=== PATIENT | male | born 1945 | race Caucasian/White ===

== ENCOUNTER → 2024-02-15 14:14 | Outpatient (REF) | payer MEDICARE, OTHER, SELFPAY | LOC: RCS 14:14 | PROVIDERS: ATTENDING PHYSICIAN Physical Medicine & Rehabilitation; FAMILY PHYSICIAN Family Medicine | DX: Z01.818 Encounter for other preprocedural examination (principal) | CPT/HCPCS: 93005 ==

== ENCOUNTER 2024-04-24 16:12 | Emergency (ER) | payer MEDICARE, OTHER, SELFPAY ==
[2024-04-24 16:22] VITALS: BP 133/98
[2024-04-24 16:53] LABS: % Basophils 0.8 % (0-2); % Eosinophils 3.1 % (0-6); % Immature Granulocytes 0.3 % (0-0.5); % Lymphocytes 23.5 % (20.5-51.1); % Monocytes 10.9 % (1.7-9.3); % Neutrophils 61.4 % (42.2-75.2); Absolute Basophils 0.1 10^3/uL (0-0.2); Absolute Eosinophils 0.2 10^3/uL (0-0.7); Absolute Lymphocytes 1.7 10^3/uL (1.2-3.4); Absolute Monocytes 0.8 10^3/uL (0.1-0.6); Absolute Neutrophils 4.6 10^3/uL (1.4-6.5); Hematocrit 48.5 % (39.0-52.0); Hemoglobin 16.2 g/dL (13.0-18.0); Mean Corp Hgb Conc. 33.4 g/dL (33.0-37.0); Mean Corpuscular Hgb 32.5 pg (27.0-31.0); Mean Corpuscular Volume 97.2 fL (80.0-94.0); Mean Platelet Volume 10.9 fL (7.4-10.4); Nucleated Red Blood Cells % 0 % (-); Platelet Count 178 10^3/uL (130-400); Red Blood Cell Count 4.99 10^6/uL (4.70-6.10); Red Cell Dist. Width 12.9 % (11.5-14.5); White Blood Cell Count 7.4 10^3/uL (4.8-10.8)
[2024-04-24 17:15] LABS: Troponin I < 0.012 ng/ml
[2024-04-24 17:20] LABS: ALT (SGPT) 48 U/L (0-50); AST (SGOT) 49 U/L (17-59); Albumin 4.8 g/dl (3.5-5.0); Alkaline Phosphatase 52 U/L (38-126); Blood Urea Nitrogen 19 mg/dl (9-20); Carbon Dioxide 29 mmol/L (22-30); Chloride 101 mmol/L (98-107); Glucose 107 mg/dl (70-99); Potassium 4.7 mmol/L (3.5-5.1); Sodium 139 mmol/L (135-145); Total Bilirubin 1.2 mg/dl (0.2-1.3); Total Protein 8.1 g/dl (6.3-8.2); eGFR > 60.00
[2024-04-24 18:19] VITALS: BP 141/83
--- NOTE | 2024-04-24 18:25 | ED.GENMED ---
History of Present Illness
General
Chief Complaint: Eye Problems
Time Seen by Provider: 04/24/24 18:17
History of Present Illness
History of Present Illness:
HPI: Patient states he had an episode of double vision 3 days ago. His did not hear about this until today. He has chronic confusion according to the . There were no other symptoms. He states he had double vision at [facility] once
hospitalized overnight about 8 years ago. He currently denies any symptoms.
EXAM:
GENERAL: Well appearing in no distress
HEENT: Moist oral mucosa, there is no disconjugate gaze, visual acuity is 20/15 corrected in both eyes
CARDIOVASCULAR: No murmurs, normal heart rate, regular rhythm, No chest wall tenderness
PULMONARY: No respiratory distress, breath sounds are clear and equal
ABDOMEN: Soft with no peritoneal signs, no tenderness
NEUROLOGIC: Excellent strength all extremities, no coordination deficits, normal finger-nose testing
PSYCHIATRIC: Appropriate mental status, normal insight and judgement
EXTREMITIES: Nontender, no edema, moves all extremities equally
SKIN: No rash, no lesions
TIME OF INITIAL ENCOUNTER: 6:10 PM
NUMBER AND COMPLEXITY OF PROBLEMS ADDRESSED AT THE ENCOUNTER
� Chronic conditions affecting care: TIA in 2016, CAD, high blood pressure, hyperlipidemia
� Acute Exacerbation and/or Progression of Chronic Illness: This is an acute problem but had a similar episode 8 years ago and states he was put on aspirin at that time
� Differential Diagnosis includes: TIA, hypoglycemic episode, ophthalmic migraine, aneurysm unlikely
AMOUNT AND/OR COMPLEXITY OF DATA TO BE REVIEWED AND ANALYZED
� I performed an independent evaluation of and my interpretation is:
EKG: Sinus 69, nonspecific ST abnormality
CT: CT shows no acute abnormality
X-rays:
Laboratory Studies: Chemistries unremarkable, CBC unremarkable
Other:
� Review of other/old records: I reviewed records�the patient went to the OR for spinal stenosis last year
� Clinical information was obtained by an independent historian: I spoke to at bedside
� Prescriptions/Medications Considered but not given:
� Further testing considered but not performed:
RISK OF COMPLICATIONS AND/OR MORBIDITY OR MORTALITY OF PATIENT MANAGEMENT
� Social determinants of health affecting care: Lives at home
� Discussion with other providers:
� Escalation of care including admission/observation vs risk of discharge considered: The patient has an unremarkable CT brain and has a stroke scale of 0 with GCS of 15. His symptoms have started to resolve 3 days ago. He had
been on aspirin at the recommendation of his workup at [facility] several years ago�I suggested that he resume baby aspirin for neuro. I encouraged him to follow-up with primary, neuro, and ophthalmology.
Past History
Past History
ED Past Medical History: HTN, Hypercholesterolemia and Psychiatric
Social History
Personal:
Phy Exam
Physical Exam
Physical Exam:
See HPI
Course
Orders/Labs/Results
Orders:
Orders
04/24/24 16:25
Electrocardiogram (*1) Urgent
Reason for Study: Other
Other Reason for Exam: double vision
CT Head W/o Iv Contrast Urgent
Comment:
Reason For Exam: double vision
04/24/24 16:26
EKG- Treatment ONCE
04/24/24 16:40
Complete Blood Count/With Diff Urgent
Comprehensive Metabolic Panel Urgent
Troponin I Urgent
04/24/24 18:29
Electrocardiogram (*1) Urgent
Reason for Study: TIA/Stroke
EKG- Treatment ONCE
Abnormal Lab Results
04/24/24
16:40
MCV 97.2 H fL
(80.0-94.0)
MCH 32.5 H pg
(27.0-31.0)
MPV 10.9 H fL
(7.4-10.4)
Absolute Monos (auto) 0.8 H 10^3/uL
(0.1-0.6)
Monocytes % 10.9 H %
(1.7-9.3)
Glucose 107 H mg/dl
(70-99)
04/24/24 16:40
04/24/24 16:40
Vital Signs
Initial and Last Documented VS:
Initial Vital Signs
Temp Pulse Resp BP Pulse Ox
98.3 F 80 16 133/98 95
04/24/24 16:22 04/24/24 16:22 04/24/24 16:22 04/24/24 16:22 04/24/24 16:22
Last Documented Vital Signs
Temp Pulse Resp BP Pulse Ox
98.3 F 71 18 141/83 97
04/24/24 16:22 04/24/24 18:19 04/24/24 18:19 04/24/24 18:19 04/24/24 18:19
*Critical Care Note
Total Time (30-74mins, 75-104mins- exclusive of procedures): Not Applicable
ED Attending Note
-
Portions of this chart may have been created with voice recognition software.� Occasional wrong word or��sound alike� substitutions may have occurred due to the inherent limitations of voice recognition software.
Discharge Plan
Departure
Patient Disposition: Home (Routine Discharge)
Date of Disposition: 04/24/24
Time of Disposition: 19:37
Patient with high blood pressure during this ER visit?: Yes
Discharge Problem:
Double vision
Instructions: Double Vision (DC)
Prescriptions:
No Action
atenolol 50 MG tablet
50 mg PO DAILY
lisinopril 5 MG tablet
5 mg PO DAILY
paroxetine HCl 40 MG tablet
40 mg PO DAILY
multivitamin Tablet
1 tab PO DAILY
Hold Instructions: Resume on 11/03/22.
atorvastatin 40 mg Tablet
40 mg PO DAILY
lorazepam 0.5 mg Tablet
0.5 mg PO HS
oxycodone-acetaminophen [Percocet] 10-325 mg tablet
1 tab PO Q6H PRN (Reason: moderate-severe pain) Qty: 30 0RF
Rx Instructions:
1/2 tab moderate pain or 1 if severe
Rx Dick Romo
tizanidine 2 mg capsule
2 mg PO TID Qty: 30 0RF
Rx Instructions:
*Rx provided by Abigail Romo
Referrals:
Gino Vila MD [Active] - Next open appointment
Gino Suggs MD [Family Provider] -
Activity Restrictions/Additional Instructions:
The cause of your symptoms is unclear. The CAT scan of the brain shows no acute abnormality. There is no sign of bleeding or tumor in the brain. I have given you the contact information for a local neurologist you could try following up with but
I also recommend that you follow-up with your primary care doctor. Consider taking a baby aspirin for stroke prevention. You should also follow-up with an artificial stone setter as well.
Interventions
Interventions:
*Risk Screen - Suicide Last Done: 04/24/24 16:22
*General Assessment Last Done: 04/24/24 16:22
*Neglect/Abuse Screening Last Done: 04/24/24 16:22
ED- Fall Risk Assessment Last Done: 04/24/24 18:18
*ED COVID-19 Vaccine History Last Done: 04/24/24 18:18
Discharge Date and Time
Print Language: YORUBA
== END 2024-04-24 19:44 | disposition home or self-care (01) ==
LOC: EMR 16:12
PROVIDERS: EMERGENCY PHYSICIAN Emergency Medicine; FAMILY PHYSICIAN Family Medicine
DX: H53.2 Diplopia (principal); R41.0 Disorientation, unspecified; E78.00 Pure hypercholesterolemia, unspecified; I10 Essential (primary) hypertension; Z91.048 Other nonmedicinal substance allergy status
CPT/HCPCS: 99284; 70450; 80053; 84484; 85025; 93005

== ENCOUNTER → 2024-05-18 11:54 | Outpatient (REF) | payer MEDICARE, OTHER, SELFPAY | LOC: RAD 11:54 | PROVIDERS: ATTENDING PHYSICIAN Student in an Organized Health Care Education/Training Program | DX: M25.572 Pain in left ankle and joints of left foot (principal) | CPT/HCPCS: 73610 ==

== ENCOUNTER → 2024-09-09 07:03 | Outpatient (REF) | payer MEDICARE, OTHER, SELFPAY | LOC: RCS 07:03 | PROVIDERS: ATTENDING PHYSICIAN Specialist; FAMILY PHYSICIAN Family Medicine | DX: I63.9 Cerebral infarction, unspecified (principal) | CPT/HCPCS: 93306 ==

== ENCOUNTER → 2024-10-11 13:34 | Outpatient (REF) | payer MEDICARE, OTHER, SELFPAY | LOC: PAVMRI 13:34 | PROVIDERS: ATTENDING PHYSICIAN Specialist; FAMILY PHYSICIAN Family Medicine | DX: G45.9 Transient cerebral ischemic attack, unspecified (principal); I63.9 Cerebral infarction, unspecified | CPT/HCPCS: 70544; 70549; 70551; A9585 ==

== ENCOUNTER → 2025-03-05 12:43 | Outpatient (REF) | payer MEDICARE, OTHER, SELFPAY | LOC: RAD 12:43 | PROVIDERS: ATTENDING PHYSICIAN Family Medicine | DX: M54.6 Pain in thoracic spine (principal); R06.02 Shortness of breath | CPT/HCPCS: 71046; 72072 ==

== ENCOUNTER 2025-05-02 17:26 | Observation (INO) | payer MEDICARE, OTHER, SELFPAY ==
[2025-05-02 11:13] VITALS: BP 150/88
--- NOTE | 2025-05-02 12:53 | ED.CVA ---
History of Present Illness
General
Chief Complaint: CVA/TIA Symptoms
Source: patient and spouse
Exam Limitations: none
Time Seen by Provider: 05/02/25 12:21
Nursing documentation reviewed up to this point in time: agreed with
Onset of Stroke Symptoms
Onset of symptoms known: Yes
Date of onset of symptoms: 05/01/25
History of Present Illness
History of Present Illness:
Patient with history of TIA (blurred/double vision), presents to ED secondary to sudden onset of weakness which caused him to fall backwards onto the couch, around 8 PM last night. Patient denies dizziness. Denies chest palpitations. Denies loss
of consciousness. Afterwards, patient needed to be assisted by his son to walk to restroom and then to his bedroom. Patient denies weakness at that time, but felt as though without assistance, he may fall again. Today, patient has no symptoms,
although his reports that he appears to be a little more unsteady on his feet when ambulating. Denies headache. Denies loss of sensation. Denies difficulty with speech. Denies previous history of similar symptoms. Of note, patient has
received outpatient physical therapy secondary to 'balance issues'. Denies recent illness. Denies recent change in medications or diet. Patient reports staying hydrated.
Past History
Past History
ED Past Medical History: HTN, Hypercholesterolemia and Psychiatric
Social History
Personal:
Review of Systems
Review of Systems
Allergies reviewed?: Yes
All Other Systems: ROS reviewed and negative except as documented in HPI and ROS
Constitutional: Reports no symptoms
Cardiac: Reports no symptoms; Denies palpitations or syncope
ABD/GI: Reports no symptoms
Musculoskeletal: Reports no symptoms
Skin: Reports no symptoms
Neurological: Reports weakness; Denies dizzy, headache or numbness
Phy Exam
Physical Exam
Physical Exam:
Physical Exam
General: no apparent distress, not acutely ill. afebrile
Head: nc/at. eomi
Neck: supple. no meningeal signs.
Heart: s1/s2 regular rate and rhythm
Lungs: no acute respiratory distress. clear bilaterally
Abdomen: normal bowel sounds. not tender.
Neuro: alert and oriented x 3. no focal neurological deficits. normal speech. normal gait.
Skin: no rash
Psychiatric: well kept. interactive and cooperative
Extremities: no edema. no calf tenderness.
Course
Orders/Labs/Results
Orders:
Orders
05/02/25 11:15
ECG [Electrocardiogram (*1)] Urgent
Reason for Study: TIA/Stroke
EKG- Treatment ONCE
05/02/25 12:48
NEUROLOGY CONSULT Urgent
Consulting Provider: Gino Vila
Was physician already notified: Yes
Reason for consult: ataxia
05/02/25 14:16
Electrocardiogram (*1) Urgent
Reason for Study: TIA/Stroke
CT Head W/o Iv Contrast Urgent
Comment:
Reason For Exam: weakness, ataxia
EKG- Treatment ONCE
05/02/25 14:29
Complete Blood Count/No Diff Urgent
Comprehensive Metabolic Panel Urgent
Erythrocyte Sed Rate Routine
Comment: may add to blood in lab
Folate Routine
Comment: May add to blood in lab
Glycohemoglobin (HgbA1c) Routine
Comment: May add to blood in lab
Lipid Profile [Cardiovascular Evaluation] Routine
Comment: May add to blood work in lab
Magnesium Urgent
TSH Reflex To Free T4 Routine
Comment: May add to blood in lab
Vitamin B12 Routine
Comment: May add to blood in lab or draw as routine
05/02/25 14:33
Orthostatic Vital Signs As Directed
Orthostatic VS Frequency: BID
Comment: lying flat x 3 mins then check, seated 3 minutes check, stand 3 mins check
05/02/25 14:35
Lorazepam [Ativan] 1 mg PO ONCE ONE
Patient Education As Directed
Type: Stroke education packet
Comment: provide to patient and family
05/02/25 16:07
Aspirin Chewable [Low Strength Aspirin] 81 mg PO NOW STA
05/02/25 17:11
Admit/Transfer Patient As Directed
Co-Sign Provider:
Level of Care: Observation services
Assign to:: Telemetry
Physician / Group: Hospitalist
Diagnosis: Ataxia
Reason for Telemetry: CVA/TIA
Date to Stop Telemetry: 05/05/25
Time to Stop Telemetry: 11:00
PRN Pain Medication Management As Directed
May give lesser potent ordered pain med per pt: Yes
preference::
Protocol:: Medication orders for pain may be administered in a
manner that supports deferring to patient preference
when the pt is:
- Requesting an ordered lesser potent pain medication.
Least to most potent pain medications are defined
as: acetaminophen < NSAID < tramadol < opioids
(morphine, oxycodone, hydromorphone).
- Requesting a lesser dose of the same medication IF
ORDERED.
- Requesting a less intrusive route of administration
if both routes are prescribed by the provider (PO <
IV).
05/02/25 17:12
Code Status As Directed
Resuscitation Status: Full Code
05/02/25 19:49
Acetaminophen [Tylenol/Feverall] 650 mg RECTAL Q4HPRN PRN
Acetaminophen [Tylenol] 650 mg PO Q4HPRN PRN
Enoxaparin Sodium [Lovenox] 40 mg SC QPM
Lorazepam [Ativan] 0.5 mg PO HSPRN PRN anxiety
05/02/25 19:49
Case Management Consult ONCE
Case Management Consult: Discharge Planning
Comment: stroke/tia
DIETARY IP CONSULT Routine
Reason for Consult: stroke/TIA
Leak Detection Engineer Urgent
Activity As Directed
Activity Level: Encourage Progressive Amb
NIH Stroke Scale As Directed
Directions: Per protocol
Comment: every shift and with any change in condition or mental status
Neurological Checks As Directed
Frequency: q4h
Additional Instructions:: q4h x 24h upon admission to the floor, then qshift & with any change in condition
and mental status
Patient Education As Directed
Type: Stroke education packet
Comment: provide to patient and family
Swallow Screening CVA/TIA ONLY As Directed
Comment: NPO until swallowing screening completed
If patient FAILS swallow screening:: NPO, Speech Therapy consult, Aspiration Precautions
If patient PASSES swallow screening, diet:: Regular
Above diet order entered?: Yes- passed screening
Vital Signs As Directed
Frequency: Per unit guidelines
Ot Eval And Treat Routine
Pt Eval And Treat Routine
Activity Level: Ambulate
Speech Therapy Eval & Treat Routine
DX Deep Vein Thrombosis Video Routine
05/03/25 06:19
Basic Metabolic Panel IN AM
Cardiovascular Evaluation IN AM
Complete Blood Count/No Diff IN AM
Magnesium IN AM
05/03/25 08:00
Aspirin Chewable [Low Strength Aspirin] 81 mg PO DAILY
Atenolol [Tenormin] 50 mg PO DAILY
Atorvastatin [Lipitor] 80 mg PO DAILY
Lisinopril [Zestril] 10 mg PO DAILY
Multivitamin [Theragran] 1 tablet PO DAILY
05/03/25 14:36
MR Brain Without Contrast Routine
Reason For Exam: ant circ stroke with right leg weakness
Recent pill cam endoscopy?: No
05/05/25 11:00
DC Protocol for Telemetry ONCE
Abnormal Lab Results
05/02/25
14:29
MCV 95.0 H fL
(80.0-94.0)
MCH 32.9 H pg
(27.0-31.0)
MPV 10.9 H fL
(7.4-10.4)
Glucose 114 H mg/dl
(70-99)
Hemoglobin A1c 6.0 H %
(4.0-5.6)
05/02/25 14:29
05/02/25 14:29
Vital Signs
Initial and Last Documented VS:
Initial Vital Signs
Temp Pulse Resp BP Pulse Ox
97.9 F 106 18 150/88 97
05/02/25 11:13 05/02/25 11:13 05/02/25 11:13 05/02/25 11:13 05/02/25 11:13
Last Documented Vital Signs
Temp Pulse Resp BP Pulse Ox
97.8 F 66 16 132/75 99
05/04/25 11:15 05/04/25 11:15 05/04/25 11:15 05/04/25 11:15 05/04/25 11:15
MDM/Problems Addressed
MDM/Problems Addressed:
CT head: No acute findings. Patient evaluated in ED by Dr. Vila, neurology, who recommends admission to hospitalost service for further evaluation and treatment. Recommend starting patient on aspirin 81 mg daily.
*Pulse Oximetry
SaO2: 97
Oxygen Mode of Delivery: Room air
Patient hypoxic: no
*Critical Care Note
Total Time (30-74mins, 75-104mins- exclusive of procedures): Not Applicable
ED Attending Note
-
Portions of this chart may have been created with voice recognition software.� Occasional wrong word or��sound alike� substitutions may have occurred due to the inherent limitations of voice recognition software.
Discharge Plan
Departure
Patient Disposition: Admit
Date of Disposition: 05/02/25
Time of Disposition: 16:07
Admit to: Telemetry
Presentation/result/management discussed w/ accepting MD/DO: Hospitalist
Discharge Problem:
Ataxia
Interventions
Interventions:
*Risk Screen - Suicide Last Done: 05/02/25 11:13
*Neglect/Abuse Screening Last Done: 05/02/25 11:13
*ED- Fall Risk Assessment Last Done: 05/02/25 12:32
*ED COVID-19 Vaccine History Last Done: 05/02/25 20:50
*Nursing Disposition Last Done: 05/02/25 19:57
ED- Pulmonary Assessment Last Done: 05/02/25 12:32
ED- Neurological Assessment Last Done: 05/02/25 12:32
ED- Cardiac Assessment Last Done: 05/02/25 12:32
ED Swallowing Screen Last Done: 05/02/25 13:50
Discharge Date and Time
Discharge Date/Time: 05/02/25 20:11
--- NOTE | 2025-05-02 13:20 | CON.NEURO4 ---
Addendum entered and electronically signed by Gino Vila MD 05/02/25 14:35:
Studies reviewed.
I have personally examined the patient. I reviewed and agree with the SENIOR PRODUCT INTEGRITY ENGINEER's Note.
My addenda:
Awake, alert, interactive. No acute distress.
Speech intact.
Follows 2-step requests w/o difficulty. No tremor.
Extra-ocular movements grossly intact.
Facial movements full and symmetric. Hearing intact to normal conversational volume.
Normal UE movements bilaterally.
Neck: full ROM.
Chest: no dyspnea
Heart: no JVD
Ext: (-) Clubbing, (-) Cyanosis, (-) Edema
IMPRESSIONS/RECOMMENDATIONS:
Abrupt onset of difficulty with walking beginning yesterday evening
Differential diagnosis includes anterior circulation stroke with the patient having a sensory change in the right lower extremity and chronic difficulty with gait
Patient also has a history of visual change presumed to be secondary to breakdown of conjugate gaze
Check MRI of brain for completeness
Goal of normotension at this time
Check orthostatic blood pressures
Start aspirin 81 mg daily
Follow lipid profile
Provide educational materials about stroke as the patient has been a victim of same in the past
D/W patient / family
All questions answered.
Will continue to follow patient.
Original Note:
Documented by User: Aure Montes NP 05/02/25 14:21
Consultation - Neurology 4
-
CONSULTING PHYSICIAN: Gino Vila MD
REFERRING PHYSICIAN: ER/Dr. Faye
DICTATED BY: KWESI Priest
DATE/TIME OF REQUEST: 05/02/25
DATE/TIME OF CONSULTATION: 05/02/25
Reason for Consultation: Weakness
History of Present Illness:
This is a 79-year-old male who has presented to the hospital with report of and episode of difficulty standing up from his couch, RLE paresthesias, and a generalized 'body tension' sensation. Patient is followed by Neurology Dr. Rodriguez as an
outpatient for diplopia and back pain. He reports that last evening (05/01/25), he tried to stand-up from sitting on the couch and was unable to stand. He noticed at that time that his head felt like it was in a vice, and his entire body feels tense.
They checked his blood pressure at home at noted that it was high around 180's systolic. His son help him up and helped him ambulate to the bathroom and to his bedroom where he went to bed. Today (05/02/25), he denies any issues standing/walking. His
RLE feel 'fuzzy' though, which is new. He does note chronic gait dysfunction. His gait has been 'shuffled' since his lumbar fusion 3 years ago. He often leans towards the left when walking at baseline. He completed balance physical therapy last
summer. He denies any issues with bladder or bowels. He notes that his short term memory has been poor, he has not had this evaluated yet. He wears prism glasses for diplopia. 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 MRI brain and MRA
head/neck imaging was obtained at that time and was unremarkable. He denies any dizziness, new vision changes, and speech/swallowing difficulty.
Past Medical History: L eye CN 6 palsy, HTN, HLD, NORRIS, CVA 2015?, CAD, osteoarthritis, GERD, prediabetes, depression, CKD, lumbar spinal stenosis
Surgical History: Lumbar fusion 2021, B/L TKR, b/l cataract removal, varicose vein removal, inguinal hernia repair
Family History: Reviewed and noncontributory.
Social History: Rare alcohol. Denies tobacco and illicit drug use.
Allergies: Pollen.
Home Medications: See below.
Review of Symptoms:
Patient denies any fever, headache, chest pain, shortness of breath, GI or symptoms.
�Per the HPI.�All systems are reviewed negative except above.
Physical Exam:
The patient is afebrile, abdomen is nondistended, breathing is unlabored, skin is warm and dry, no edema.
NIH Stroke Scale:
I performed the NIH stroke scale on the patient on 05/02/25 at 1330. The patient scored 1 points on the NIH stroke scale assessment, which were assigned as follows: See below.
Neurologic Examination:
The patient is awake, alert and oriented x 3. He is able to follow commands and answer questions appropriately. There is no aphasia or dysarthria. On cranial nerve assessment, pupils are 3 mm bilateral, round and reactive to light and
accommodation. Visual edmondson are full. Extraocular movements are intact. Facial sensations are intact and bilaterally symmetrical, there is no facial asymmetry. Hearing is intact bilaterally to normal conversation volume. Tongue palate and uvula are
midline. NO tongue fasciculations. Sternocleidomastoid strengths are full bilaterally. Motor strengths are 5/5 bilateral upper and lower extremities on medical research [place] scale. There is no drift or involuntary movement noted. Deep tendon
reflexes are 2+ bilateral upper extremities, bilateral lower extremities are 3+, one beat of clonus in b/l Achilles, +crossed abductors, Babinski is absent bilaterally. Vibration is absent in BLE. There was no extinction noted on double simultaneous
stimulation. Coordination is intact by finger to nose bilaterally. Mild ataxia in the RLE.
Lab Results: See below.
Neuro Imaging: None
Differentials for the patient's presentation include:
1. Transient gait dysfunction and ongoing RLE paresthesias and body tension; unclear etiology. Possibilities include lumbar spine stenosis given hyperreflexia and hx of lumbar spine stenosis. Small stroke is possible but less likely, question of
history of a stroke in the past? Orthostatic hypotension possibly contributing to symptoms.
2. Report of short term memory changes.
Patient has the following risk factors for their symptoms: HTN, HLD, hx of stroke?
IV Tenecteplase/IAT candidacy
Recommendations:
-Check orthostatic vital signs.
-Would start aspirin 81mg daily for stroke prevention.
-Eventual MRI brain noncontrast and MRI lumbar spine.
-Goal normotension.
-Provide patient with a stroke education packet.
-Outpatient neuropsychological testing.
-Would benefit from outpatient physical therapy.
-Patient should follow-up with Dr. Rodriguez as an outpatient.
Discussed patient care with: Dr. Vila, the patient, patient's
Medications
-
Home Medications
�Medication �Instructions �Recorded
atenolol 50 mg tablet 50 mg PO DAILY 03/04/12
lisinopril 5 mg tablet 5 mg PO DAILY 09/22/18
paroxetine HCl 40 mg tablet 40 mg PO DAILY 09/22/18
atorvastatin 40 mg tablet 40 mg PO DAILY 10/05/22
lorazepam 0.5 mg tablet 0.5 mg PO HS 10/05/22
multivitamin 1 tab PO DAILY 10/05/22
Held on 10/28/22.
Instructions: Resume on
11/03/22.
oxycodone-acetaminophen 10 mg-325 1 tab PO Q6H PRN moderate-severe 10/28/22
mg tablet (Percocet) pain #30 tabs
tizanidine 2 mg capsule 2 mg PO TID muscle relaxer/sleep 10/28/22
#30 caps
Vital Signs and Labs
-
Vital Signs and Labs:
Vital Signs
Temp Pulse Resp BP Pulse Ox
97.9 F 106 18 150/88 97
05/02/25 11:13 05/02/25 11:13 05/02/25 11:13 05/02/25 11:13 05/02/25 12:54
NIH Stroke Score
Subsequent NIH Scale
Date of Subsequent NIH Scale: 05/02/25
Time of Subsequent NIH Scale: 13:30
NIH Stroke Score
Level of Consciousness: 0 - Alert
LOC Questions: 0-Answers both correctly
LOC Commands: 0-Performs both correctly
Best Horizontal Gaze: 0-Normal
Visual Edmondson: 0=Normal, no visual loss
Facial Palsy: 0=Normal, symmetrical
Motor - Right Arm: 0=No drift 10 seconds
Motor - Left Arm: 0=No drift 10 seconds
Motor - Right Le-No drift 5 seconds
Motor - Left Le-No drift 5 seconds
Limb Ataxia: 1-Present in one limb
Sensation: 0-Normal
Best Language: 0-No aphasia
Dysarthria: 0-Normal
Extinction and Inattention: 0-No abnormality
NIH Total Score:: 1

Documented by User: Gino Vila MD 05/02/25 14:27
NIH Stroke Score
NIH Stroke Score
NIH Total Score:: 1
[2025-05-02 14:42] LABS: Hematocrit 45.3 % (39.0-52.0); Hemoglobin 15.7 g/dL (13.0-18.0); Mean Corp Hgb Conc. 34.7 g/dL (33.0-37.0); Mean Corpuscular Volume 95.0 fL (80.0-94.0); Platelet Count 183 10^3/uL (130-400); Red Cell Dist. Width 12.9 % (11.5-14.5)
[2025-05-02 15:17] VITALS: BP 142/78
--- NOTE | 2025-05-02 16:17 | HPS.HSE ---
Family Physician
-
Family Physician: Gino Suggs
Chief Complaint
-
Weakness
History of Present Illness
79 y/o male with weakness and has right LE paraesthesias . He was trying to get out of the couch yesterday he fell back into the couch a couple times. They also noted that he has difficulty with balance. Patient has a history of TIA in the past
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 Patient denies any headache nausea vomiting or diarrhea. No weakness numbness tingling any part of the body. He feels 'tensed'
Medical History
Past Medical History
Past Medical History: Reports Other
Additional Past Medical History:
Sciatica, history of stroke, TIA, sleep apnea, Coronary artery disease, Hypertension, Hyperlipidemia, Osteoarthritis, Spinal stenosis, DDD, Depression
Past Surgical History: Reports Other
Additional Past Surgical History:
Vein ligation, inguinal hernia, left knee arthroscopy, cardiac cath, left knee replacement, shoulder surgery, epidural injections under anesthesia, cataract surgery, back surgery
Social History
Tobacco: Non-smoker
Alcohol: Occasional
Drug: None
Personal:
Living: With Family
Employment: Retired
Family History
Family History: Cancer (Breast cancer mother) and Other (Stroke in father)
Allergies / Home Medications
Allergies reflects when Allergies were last updated in [facility].
Home Medications with original date entered in [facility]
Allergy/Medication List:
Allergies
Allergy/AdvReac Type Severity Reaction Status Date / Time
pollen extracts Allergy seasonal Verified 05/02/25 11:13
allergies
Home Medications
atenolol 50 mg tablet 50 mg PO DAILY 03/04/12
lorazepam 0.5 mg tablet 0.5 mg PO HSPRN PRN anxiety 10/05/22
atorvastatin 80 mg tablet 80 mg PO DAILY 05/02/25
ibuprofen 200 mg tablet 400 mg PO BIDPRN PRN mild pain 05/02/25
lisinopril 10 mg tablet 10 mg PO DAILY 05/02/25
therapeutic multivitamin 1 tab PO DAILY 05/02/25
Review of Systems
-
A 12 point ROS was completed and negative except as noted: Yes
Cardiac: Denies Chest Pain or Palpitations
Abdomen/GI: Denies Abdominal Pain
Neurological: Reports Other (Balance problems)
Physical Exam
Vital Signs
Vital Signs
Temp Pulse Resp BP Pulse Ox
97.9 F 96 18 142/78 99
05/02/25 11:13 05/02/25 15:17 05/02/25 15:17 05/02/25 15:17 05/02/25 15:17
Physical Exam
General: No Apparent Distress and Comfortable
Respiratory: Clear
Cardiac: S1/S2, Regular Rhythm and Irregular Rhythm
GI: Soft, Non Tender and Normal Bowel Sounds
Neuro: Awake, No Motor Deficits and Cranial Nerves Intact; No Facial Droop
Psych: Intact Judgment/Insight
Laboratory Results
-
05/02/25 14:29
Impression/Plan
-
IMPRESSION/PLAN
Head CT-no acute intracranial abnormalities
EKG-sinus tachycardia rate 113
# Difficulty with walking, balance
Admit
Neurochecks
TIA versus other reasons
Start aspirin, continue statin
MRI of the brain
Neurology has been consulted
PT OT evaluation
# History of stroke twice where he had double vision and confusion for the first 1 and double vision for the second one
# Hypertension-continue lisinopril and atenolol
# Hyperlipidemia-continue atorvastatin
# Anxiety-continue as needed Ativan
# Sleep apnea-continue CPAP
# Osteoarthritis/spinal stenosis/DDD
# DVT prophylaxis-Lovenox
# Full code
Discussed with and son at bedside
Part of this note was created using voice recognition system. Occasional wrong word or��sound alike� substitutions may have inadvertently occurred due to the inherent limitations of voice recognition software. If noted kindly bring it to my
attention for correction.
[2025-05-02 16:24] LABS: ALT (SGPT) 33 U/L (0-50); AST (SGOT) 35 U/L (17-59); Albumin 4.7 g/dl (3.5-5.0); Alkaline Phosphatase 39 U/L (38-126); Blood Urea Nitrogen 17 mg/dl (9-20); Calcium 9.9 mg/dl (8.4-10.2); Carbon Dioxide 22 mmol/L (22-30); Chloride 106 mmol/L (98-107); Glucose 114 mg/dl (70-99); Magnesium 2.3 mg/dl (1.6-2.3); Potassium 5.0 mmol/L (3.5-5.1); Sodium 137 mmol/L (135-145); Total Protein 7.7 g/dl (6.3-8.2); eGFR > 60.00
[2025-05-02 16:50] LABS: HDL Cholesterol 52 mg/dl; LDL Cholesterol, Calculated 112 mg/dl; Very Low Density Lipoprotein 27 mg/dl (0-30)
[2025-05-02] MEDS: LOW STRENGTH ASPIRIN 81 MG PO (17:08)
[2025-05-02 19:45] VITALS: BP 103/65; BP 136/84; BP 142/88; PULSE 119; PULSE 128; PULSE 98; BMI 29.5
--- NOTE | 2025-05-02 20:10 | PTCARENOTE ---
Patient arrived from the ED via stretcher. Patient AAOx3, VSS. Patient ambulated into the room. No complaints of pain, light headedness or dizziness. Educated on medications, NIH stroke scale, and oriented to the room. Call gregory is within reach.
[2025-05-02] MEDS: LOVENOX 40 MG SC (20:49)
[2025-05-02 23:50] VITALS: BP 141/82
[2025-05-03] VITALS (8 sets, daily range): BP systolic 119–161; BP diastolic 72–94; PULSE 67–80; O2SAT 95–96
[2025-05-03 00:11] LABS: Folate 6.9 ng/ml (2.76-20); Vitamin B12 280 pg/ml (239-931)
[2025-05-03 06:55] LABS: Hematocrit 45.7 % (39.0-52.0); Hemoglobin 15.2 g/dL (13.0-18.0); Mean Corp Hgb Conc. 33.3 g/dL (33.0-37.0); Mean Corpuscular Volume 96.4 fL (80.0-94.0); Platelet Count 159 10^3/uL (130-400); Red Cell Dist. Width 12.8 % (11.5-14.5)
[2025-05-03 07:16] LABS: Blood Urea Nitrogen 21 mg/dl (9-20); Calcium 9.4 mg/dl (8.4-10.2); Carbon Dioxide 23 mmol/L (22-30); Chloride 110 mmol/L (98-107); Estimated Creatinine Clearance 79 ml/min; Glucose 106 mg/dl (70-99); HDL Cholesterol 47 mg/dl; LDL Cholesterol, Calculated 102 mg/dl; Magnesium 2.3 mg/dl (1.6-2.3); Potassium 4.4 mmol/L (3.5-5.1); Sodium 140 mmol/L (135-145); Very Low Density Lipoprotein 23 mg/dl (0-30); eGFR > 60.00
[2025-05-03] MEDS: LIPITOR 80 MG PO (08:03)
[2025-05-03] MEDS: THERAGRAN 1 TABLET PO (08:03)
[2025-05-03] MEDS: ZESTRIL 10 MG PO (08:03)
[2025-05-03] MEDS: TENORMIN 50 MG PO (08:03)
[2025-05-03] MEDS: LOW STRENGTH ASPIRIN 81 MG PO (08:04)
--- NOTE | 2025-05-03 09:35 | PTOTSP ---
REGISTERED NURSE HH CASE MANAGER Evaluations
Oral/pharyngeal swallowing functional to continue regular, thin liquid diet with precautions below.
Signs concerning for a mild cognitive impairment noted scored (i.e., /30 on MOCA Version 8.1 [place]) with points lost for visuospatial/executive function, naming, attention, language, and delayed recall (most significant deficit). Strengths
included orientation and abstraction.
Recommend:
1. IDDSI 7 Regular, Thin Liquids
2. Medications as best tolerated
3. Oral care 3x daily
4. Strategies: upright to 90 degrees, small sips/bites, slow rate, reflux precautions
5. Outpatient neuropsych evaluation and REGISTERED NURSE HH CASE MANAGER evaluations.
--- NOTE | 2025-05-03 10:26 | PTOTSP ---
Pt presents to OT with good UB AROM, strength and coordination; vision functional with prism glasses. ST performed MOCA - scored ; see ST notes for details. Currently at mod I/I level with basic self care, functional mobility and shared home
management. No further skilled OT indicated at this time.
[2025-05-03 10:34] LABS: Glycohemoglobin (HgbA1c) 6.0 % (4.0-5.6)
--- NOTE | 2025-05-03 12:12 | W.PN.HOSP.TC ---
Today's Communication/Plan
-
MRI just completed
Echo ordered
await input from neurology
Assessment / Plan
Assessment / Plan
# Difficulty with walking, balance
Brought into hospital under observation status
Neurochecks
TIA versus other reasons
Start aspirin, continue statin
MRI of the brain just completed
Neurology has been consulted
PT OT evaluation
# History of stroke twice where he had double vision and confusion for the first 1 and double vision for the second one
# Hypertension-continue lisinopril and atenolol
# Hyperlipidemia-continue atorvastatin
# Anxiety-continue as needed Ativan
# Sleep apnea-continue CPAP
# Osteoarthritis/spinal stenosis/DDD
# DVT prophylaxis-Lovenox
# Full code
Anticipated Discharge: Within 24 hours
Subjective/Interval History
-
Date of Service: May 03, 2025
Patient feels he is back to baseline
Objective Data
-
Labs:
Laboratory Results
05/02/25 05/03/25
14:29 06:19
WBC 7.2 6.3
Hgb 15.7 15.2
Hct 45.3 45.7
Plt Count 183 159
Sodium 140
Potassium 4.4
Chloride 110 H
Carbon Dioxide 23
BUN 21 H
Creatinine 0.9
Glucose 106 H
Calcium 9.4
Vital Signs:
Vital Signs
Temp Pulse Resp BP Pulse Ox
97.9 F 96 16 122/86 97
05/03/25 11:20 05/03/25 11:20 05/03/25 11:20 05/03/25 11:20 05/03/25 11:20
Review of Systems
-
History Source: Patient and Coordinated Provider
Constitutional: Denies Fever
EENT: Reports No Symptoms Reported
Respiratory: Reports No Symptoms
Cardiac: Reports No Symptoms
Musculoskeletal: Reports No Symptoms
Neuro: Reports Other (Ability to get out of chair, which was the reason he came to hospital, now fully resolved)
Physical Exam
-
General: Well Developed, Well Nourished and No Apparent Distress
HEENT: Normocephalic, Atraumatic and Moist Mucous Membranes
Respiratory: Clear to Auscultation; Negative Wheezes, Rales or Rhonchi
Cardiac: Regular Rhythm and S1/S2
GI: Soft, Nontender and Nondistended
Musculoskeletal: No Clubbing, No Cyanosis and No Edema
Neuro: Awake, Alert, Oriented and No Motor Deficits (ability to get out of chair and walk across room tested by me, as well as PT and showed no deficits)
[2025-05-03] MEDS: LOVENOX 40 MG SC (17:27)
--- NOTE | 2025-05-03 17:53 | CM ---
Alert awake oriented patient who lives with his Cathy who lives in a 2 story home with 15 step to enter. He is independent in driving and in all activities of daily living.He was offered VN he declined need.His will drive him home. No
[facility] letter reviewed signed on chart.
NO VN /SNF
[facility]
PCP DR Suggs
PLAN Home Declined VN
[2025-05-03] MEDS: ATIVAN 0.5 MG PO (22:00)
[2025-05-04 03:36] VITALS: BP 151/77
[2025-05-04 07:20] VITALS: BP 160/85
[2025-05-04] MEDS: LOW STRENGTH ASPIRIN 81 MG PO (08:51)
[2025-05-04] MEDS: ZESTRIL 10 MG PO (08:51)
[2025-05-04] MEDS: LIPITOR 80 MG PO (08:51)
[2025-05-04] MEDS: TENORMIN 50 MG PO (08:51)
--- NOTE | 2025-05-04 10:14 | W.PN.NEURO.1 ---
Today's Communication / Plan
-
Provide abdominal binder due to orthostasis
Patient should continue to follow orthostatic blood pressures with 3-minute increments between each body position change as outpatient
Continue aspirin 81 mg daily due to prior history of stroke
Continue atorvastatin 80 mg with consideration for additional medication based on LDL greater than 100 as outpatient
Start cyanocobalamin 1000 mcg daily due to low level
Neuro Assessment/Plan
Assessment
Abrupt onset of difficulty with walking beginning yesterday evening
Most likely secondary to mild orthostasis
Patient also has a history of visual change presumed to be secondary to breakdown of conjugate gaze
Plan
Provide abdominal binder due to orthostasis
Patient should continue to follow orthostatic blood pressures with 3-minute increments between each body position change as outpatient
Continue aspirin 81 mg daily due to prior history of stroke
Continue atorvastatin 80 mg with consideration for additional medication based on LDL greater than 100 as outpatient
Start cyanocobalamin 1000 mcg daily due to low leve
Will follow as needed
Subjective/Objective
Subjective Data
Date of Service: May 04, 2025
Objective Data
Vital Signs
Temp Pulse Resp BP Pulse Ox
36.5 C 65 16 160/85 97
05/04/25 07:20 05/04/25 08:51 05/04/25 07:20 05/04/25 08:51 05/04/25 07:20
Lab Results
05/03/25 06:19
05/03/25 06:19
Sodium 140 mmol/L (135-145) 05/03/25 06:19
Potassium 4.4 mmol/L (3.5-5.1) 05/03/25 06:19
BUN 21 mg/dl (9-20) H 05/03/25 06:19
Glucose 106 mg/dl (70-99) H 05/03/25 06:19
Calcium 9.4 mg/dl (8.4-10.2) 05/03/25 06:19
LDL Cholesterol, Calc 102 mg/dl 05/03/25 06:19
Vitamin B12 280 pg/ml (230-424) 05/02/25 14:29
Patient Allergies
pollen extracts Allergy (Verified 05/02/25 11:13)
seasonal allergies
Data Reviewed
-
MRI Head: Report Reviewed
Past History
Past History
ED Past Medical History: CVA, HTN, Hypercholesterolemia, Psychiatric and Other (Orthostatic hypotension)
Social History
Personal:
Medications
-
Medications:
Generic Name Dose Route Start Last Admin
Trade Name Freq PRN Reason Stop Dose Admin
Acetaminophen 650 mg 05/02/25 19:49
Acetaminophen 650 Mg Rectal Suppository RECTAL 05/30/25 19:48
Q4HPRN PRN
LYN, mild pain, or temp >100.4F
Acetaminophen 650 mg 05/02/25 19:49
Acetaminophen 325 Mg Tablet PO 05/30/25 19:48
Q4HPRN PRN
LYN, mild pain, or temp >100.4F
Aspirin 81 mg 05/03/25 08:00 05/04/25 08:51
Aspirin 81 Mg Chewable Tablet PO 05/31/25 07:59 81 mg
DAILY MIKHAIL Administration
Atenolol 50 mg 05/03/25 08:00 05/04/25 08:51
Atenolol 50 Mg Tablet PO 05/31/25 07:59 50 mg
DAILY MIKHAIL Administration
Atorvastatin Calcium 80 mg 05/03/25 08:00 05/04/25 08:51
Atorvastatin (Lipitor) 80 Mg Tablet PO 05/31/25 07:59 80 mg
DAILY MIKHAIL Administration
Enoxaparin Sodium 40 mg 05/02/25 19:49 05/03/25 17:27
Enoxaparin Sodium 40 Mg/0.4 Ml Syringe SC 05/30/25 19:48 40 mg
QPM MIKHAIL Administration
Lisinopril 10 mg 05/03/25 08:00 05/04/25 08:51
Lisinopril 10 Mg Tablet PO 05/31/25 07:59 10 mg
DAILY MIKHAIL Administration
Lorazepam 0.5 mg 05/02/25 19:49 05/03/25 22:00
Lorazepam 0.5 Mg Tablet PO 05/30/25 19:48 0.5 mg
HSPRN PRN Administration
anxiety
[2025-05-04] MEDS: VITAMIN B-12 1000 MCG PO (10:32)
[2025-05-04 11:15] VITALS: BP 132/75; BP 140/77; BP 144/86; PULSE 66; PULSE 83
--- NOTE | 2025-05-04 11:51 | W.PN.HOSP.TC ---
Today's Communication/Plan
-
dc to home
Assessment / Plan
Assessment / Plan
# Difficulty with walking, balance
Brought into hospital under observation status
Neurochecks
TIA probable, now fully resolved
Start aspirin, continue statin
MRI of the brain just completed
Neurology has been consulted
PT OT appreciated
orthostatic BP checks showed minimal to no changes
132/75 supine, 140/77 sitting, 144/86 standing
# History of stroke twice where he had double vision and confusion for the first 1 and double vision for the second one
# Hypertension-continue lisinopril and atenolol
# Hyperlipidemia-continue atorvastatin
# Anxiety-continue as needed Ativan
# Sleep apnea-continue CPAP
# Osteoarthritis/spinal stenosis/DDD
# DVT prophylaxis-Lovenox
# Full code
dc now
see dictated note
Anticipated Discharge: Today
Subjective/Interval History
-
Date of Service: May 04, 2025
Feels well, no further ataxia symptoms
Objective Data
-
Vital Signs:
Vital Signs
Temp Pulse Resp BP Pulse Ox
97.8 F 66 16 132/75 99
05/04/25 11:15 05/04/25 11:15 05/04/25 11:15 05/04/25 11:15 05/04/25 11:15
I&O
05/03/25 05/04/25 05/05/25
06:59 06:59 06:59
Intake Total 1200 / 1200
Balance 1200 / 1200
Review of Systems
-
History Source: Patient and Coordinated Provider
Constitutional: Denies Fever
EENT: Reports No Symptoms Reported
Respiratory: Reports No Symptoms
Cardiac: Reports No Symptoms
Musculoskeletal: Reports No Symptoms
Neuro: Reports Other (Ability to get out of chair, which was the reason he came to hospital, now fully resolved)
Physical Exam
-
General: Well Developed, Well Nourished and No Apparent Distress
HEENT: Normocephalic, Atraumatic and Moist Mucous Membranes
Respiratory: Clear to Auscultation; Negative Wheezes, Rales or Rhonchi
Cardiac: Regular Rhythm and S1/S2
GI: Soft, Nontender and Nondistended
Musculoskeletal: No Clubbing, No Cyanosis and No Edema
Neuro: Awake, Alert, Oriented and No Motor Deficits (ability to get out of chair and walk across room tested by me, as well as PT and showed no deficits)
--- NOTE | 2025-05-04 13:41 | CM ---
MD entered order for discharge .
Pt declined VN
His will drive him home.Pt declined VN need.
PLAN Home no needs
--- NOTE | 2025-05-04 14:44 | W.DS.TRANS ---
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
-
Discharge Instructions:
Discharge Diagnosis/Procedures TIA
Diet Regular
Activity No strenuous activity
Driving Restrictions Not until seen by your Dr
Bathing Restrictions None
Blood Work CBC, CMP, Lipid Profile in 2-3 weeks
Instructions:
Stand-Alone Forms:
Changes to Home Medications: Yes
Discharge Medications:
DC Medications w/original date entered in [facility]
atenolol 50 mg tablet 50 mg PO DAILY 03/04/12
lorazepam 0.5 mg tablet 0.5 mg PO HSPRN PRN anxiety 10/05/22
atorvastatin 80 mg tablet 80 mg PO DAILY 05/02/25
lisinopril 10 mg tablet 10 mg PO DAILY 05/02/25
therapeutic multivitamin 1 tab PO DAILY 05/02/25
aspirin 81 mg chewable tablet 81 mg PO DAILY #30 tabs 05/04/25
ezetimibe 10 mg tablet (Zetia) 10 mg PO DAILY #30 tabs 05/04/25
vitamin B complex (B-Complex tablet) 1 tab PO DAILY #30 tabs 05/04/25
Home Medication Changes
Aspirin, Zetia and B complex vitamins have been added
Pending Results: No
== END 2025-05-04 13:00 | disposition home or self-care (01) ==
LOC: 4 EAST ACU 17:26
PROVIDERS: ADMITTING PHYSICIAN Hospitalist; ATTENDING PHYSICIAN Internal Medicine; CONSULT PHYSICIAN Psychiatry & Neurology Neurology; EMERGENCY PHYSICIAN Emergency Medicine; FAMILY PHYSICIAN Family Medicine
DX: R27.0 Ataxia, unspecified (principal); E78.00 Pure hypercholesterolemia, unspecified; I12.9 Hypertensive chronic kidney disease with stage 1 through stage 4 chronic kidney disease, or unspecified chronic kidney disease; I25.10 Atherosclerotic heart disease of native coronary artery without angina pectoris; K21.9 Gastro-esophageal reflux disease without esophagitis; M48.061 Spinal stenosis, lumbar region without neurogenic claudication; N18.9 Chronic kidney disease, unspecified; G47.33 Obstructive sleep apnea (adult) (pediatric); M51.369 Other intervertebral disc degeneration, lumbar region without mention of lumbar back pain or lower extremity pain; R73.03 Prediabetes; F32.A Depression, unspecified; F41.9 Anxiety disorder, unspecified; M19.90 Unspecified osteoarthritis, unspecified site; Z79.899 Other long term (current) drug therapy; Z82.3 Family history of stroke; Z86.73 Personal history of transient ischemic attack (TIA), and cerebral infarction without residual deficits; Z98.1 Arthrodesis status
CPT/HCPCS: 70450; 70551; 80048; 80053; 80061; 82607; 82746; 83036; 83735; 84443; 85027; 85652; 92523; 92610; 93005; 93306; 97162; 97166; 99285; G0378

== ENCOUNTER → 2025-08-07 11:53 | Outpatient (REF) | payer MEDICARE, OTHER, SELFPAY | LOC: RAD 11:53 | PROVIDERS: ATTENDING PHYSICIAN Family Medicine; OTHER PHYSICIAN Student in an Organized Health Care Education/Training Program | DX: M25.512 Pain in left shoulder (principal) | CPT/HCPCS: 73030 ==

== ENCOUNTER → 2025-08-31 12:24 | Outpatient (REF) | payer MEDICARE, OTHER, SELFPAY | LOC: REG 12:24 | PROVIDERS: ATTENDING PHYSICIAN Family Medicine | DX: M54.6 Pain in thoracic spine (principal) | CPT/HCPCS: 72072 ==